=== PATIENT | female | born 1980 | race Caucasian/White ===

== ENCOUNTER 2020-11-07 11:47 | Outpatient (NON) | payer OTHER, SELFPAY ==
[2020-11-07 21:33] LABS: SARS-CoV-2 RNA PCR Negative
== END 2020-11-07 11:48 ==
LOC: ANHCOVIDDT 11:50
PROVIDERS: Visit Provider Family Medicine
DX: R19.7 Diarrhea, unspecified (principal); Z20.828 Contact with and (suspected) exposure to other viral communicable diseases
CPT/HCPCS: 87635; C9803; U0003

== ENCOUNTER 2024-04-02 08:54 | Emergency (ER) | payer OTHER, SELFPAY ==
[2024-04-02] VITALS (8 sets, daily range): BP systolic 106–124; BP diastolic 66–83; PULSE 66–70; RESP 16; TEMP 36.6–36.7; O2SAT 98–100
--- NOTE | ~2024-04-02 | US_ITS ---
EXAMINATION: US pelvic complete DATE: 04/02/2024 10:44 INDICATION: Right lower quadrant abdominal pain. TECHNIQUE: Multiple transabdominal and transvaginal sonographic images of the pelvis were obtained. COMPARISON: None. FINDINGS: TRANSABDOMINAL ULTRASOUND: The uterus measures 8.7 x 6.0 x 7.3 cm. There is no free fluid in the pelvis. TRANSVAGINAL ULTRASOUND: The endometrial complex measures 15 mm in thickness. The right ovary measures 4.7 x 3.2 x 4.2 cm. The left ovary measures 3.2 x 1.0 x 2.4 cm. There is normal vascular flow in the ovaries. IMPRESSION: 1. Normal pelvis. Reviewed, dictated and finalized at location A. IMPRESSION: 1. Normal pelvis.
--- NOTE | ~2024-04-02 | CT_ITS ---
EXAMINATION: CT abdomen pelvis w con DATE: 04/02/2024 10:58 INDICATION: Right lower quadrant abdominal pain. Right flank pain. Vaginal bleeding. TECHNIQUE: Computed tomography (CT) of the abdomen and pelvis was performed with 100 mL Omnipaque 350 intravenous contrast. Automated exposure control and iterative reconstruction technique were employe d. The dose-length product was 221.19 mGy-cm. COMPARISON: Ultrasound pelvis 04/02/2024 FINDINGS: The visualized portions of the lung bases demonstrate a few pulmonary nodules measuring up to 4 mm, likely benign. A calcified right lung nodule is consistent with old granulomatous disease. N o pleural effusion. The heart size is normal. No pericardial effusion. There are cysts in the liver m easuring up to 5 mm. The gallbladder, spleen, pancreas, adrenal glands, and kidneys are normal. There are no dilated loops of bowel. The appendix is normal. There are no pathologically enlarged lymph no eli. There is physiologic fluid in the pelvis. The uterus demonstrates heterogeneous contrast enhance ment. Left ovarian vein is enlarged, consistent with pelvic venous insufficiency. There is mild thora cic spondylosis. IMPRESSION: 1. Heterogeneous contrast enhancement of the uterus, likely fibroids. 2. Pelvic venous insufficiency. Reviewed, dictated and finalized at location A.
[2024-04-02 09:19] LABS: Basophils Percent Auto 0.6 % (0.2-1.2); Eosinophils Absolute Auto 0.1 K/mm3 (0-0.3); Eosinophils Percent Auto 1.7 % (0-4.4); Hematocrit 38.6 % (37.0-47.0); Hemoglobin 12.4 g/dL (12.0-15.0); Immature Granulocyte Absolute 0.02 K/mm3 (0.00-0.031); Immature Granulocyte Percent A 0.3 % (0-0.5); Lymphocytes Absolute Auto 1.77 K/mm3 (0.9-3.2); Lymphocytes Percent Auto 27.6 % (18.3-44.2); Mean Corpuscular HGB Conc 32.1 g/dl (32-36); Mean Corpuscular Hemoglobin 28.8 pg (26-34); Mean Corpuscular Volume 89.8 fl (80-100); Monocytes Absolute Auto 0.6 K/mm3 (0.1-0.6); Monocytes Percent Auto 9.8 % (2.6-8.5); Neutrophils Absolute Auto 3.8 K/mm3 (1.3-6.7); Platelet Count Result 357 k/mm3 (150-375); Red Cell Distribution Width 15.5 % (11.5-14.5); White Blood Count 6.4 K/mm3 (4.5-10.0)
[2024-04-02 09:28] LABS: Prothrombin Time 13.6 Seconds (11.1-14.7)
[2024-04-02 09:29] LABS: Partial Thromboplastin Time 28.8 Seconds (22.3-36.8)
[2024-04-02 09:37] LABS: Alanine Aminotransferase 14 U/L (6-35); Albumin Level 4.1 g/dL (3.5-5.1); Alkaline Phosphatase 40 U/L (38-126); Anion Gap 5 mmol/L (4-12); Aspartate Amino Transferase 24 U/L (14-36); Bilirubin,Total 0.4 mg/dL (0.2-1.3); Blood Urea Nitrogen 9 mg/dL (7-17); Calcium 8.6 mg/dL (8.4-10.2); Carbon Dioxide 22 mmol/L (22-30); Chloride 109 mmol/L (98-107); Estimated Glomerular Filt Rate > 60; Glucose 91 mg/dL (65-110); Potassium 4.2 mmol/L (3.4-5.0); Sodium 136 mmol/L (137-145)
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
[2024-04-02] MEDS: ACETAMINOPHEN 500 MG TABLET 1000 MG PO (10:45)
[2024-04-02 10:58] LABS: Bacteria Urine None Seen /hpf; Non Pathogenic Casts 0-2; RBC Urine >100 /hpf (0-2); Squamous Epithelial Cell Urine None Seen /hpf (Few)
[2024-04-02 11:22] LABS: Appearance Urine Cloudy (Clear); Bilirubin Urine Negative (Negative); Blood Urine 3+ (Negative); Glucose Urine UA Negative (Negative); Ketones Urine Negative (Negative); Leukocyte Esterase Ur 2+ LEU/UL (Negative); Nitrate Urine Negative (Negative); Protein Urine Negative (Negative); Specific Grav Ur 1.006 (1.001-1.035); Urobilinogen Urine 0.2 mg/dL (<2.0)
[2024-04-02 11:25] LABS: Add Urine Microscopic? YES; Color Urine Light Red (Yellow)
[2024-04-02 13:15] LABS: Trichomonas Vag PCR NOT DETECTED (NOT DETECTE)
[2024-04-02 13:38] LABS: Chlamydia trachomatis NOT DETECTED (NOT DETECTE); Neisseria gonorrhoeae PCR NOT DETECTED (NOT DETECTE)
== END 2024-04-02 14:48 | disposition home or self-care (01) ==
PROVIDERS: Emergency Provider Student in an Organized Health Care Education/Training Program; PCP Obstetrics & Gynecology
DX: N93.9 Abnormal uterine and vaginal bleeding, unspecified (principal); N94.89 Other specified conditions associated with female genital organs and menstrual cycle; D25.9 Leiomyoma of uterus, unspecified; R82.998 Other abnormal findings in urine; R10.2 Pelvic and perineal pain; F90.9 Attention-deficit hyperactivity disorder, unspecified type; F41.9 Anxiety disorder, unspecified; I34.1 Nonrheumatic mitral (valve) prolapse; F17.290 Nicotine dependence, other tobacco product, uncomplicated
CPT/HCPCS: 36415; 74177; 76856; 80053; 81001; 81025; 85025; 85610; 85730; 87077; 87086; 87088; 87491; 87591; 87661; 99284; A9270; Q9967

== ENCOUNTER 2024-05-04 01:09 | Day surgery (SDC) | payer OTHER, SELFPAY ==
[2024-05-01 15:42] VITALS: BMI 21.4
--- NOTE | 2024-05-01 15:58 | PC.NURSE ---
Patient hung up before interview was done so no instructions were given to patient.
--- NOTE | 2024-05-04 06:53 | WPDHPUPDATE1 ---
History and Physical Update Update Date/Time: 05/04/24 06:53 History and Physical has been reviewed, including an updated exam of the patient. There are NO changes in the patient's condition. Risks, benefits, and alternatives have been discussed and questions answered. Patient agrees to proceed with hysteroscopy with D&C and endometrial ablation..
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
[2024-05-04] MEDS: ACETAMINOPHEN 500 MG TABLET 1000 MG PO (13:20)
[2024-05-04 13:31] VITALS: BMI 21.5
[2024-05-04 13:32] VITALS: BP 112/69; PULSE 67; RESP 16; TEMP 37.1; O2SAT 94
--- NOTE | 2024-05-04 13:34 | WPDANESEPPF ---
Anes - Initial Pre Proc Eval Procedure: Operation Date: 05/04/24 11:45 Proposed Procedures p Hysteroscopy, Dilation and Curettage, Carmen Endometrial Ablation - Shea Laird MD Date/Time: 05/04/24 13:34 Surgeon: Shea Laird MD Pre Op Diagnosis: abn uterine bleeding Patient Data Age: 43 Gender: F Height: 1.57 m Weight: 53.5 kg Last Vital Signs Temp 98.7 F 05/04/24 13:32 Pulse 67 05/04/24 13:32 Resp 16 05/04/24 13:32 BP 112/69 05/04/24 13:32 Pulse Ox 94 05/04/24 13:32 O2 Del Method Room Air 05/04/24 13:32 Allergies Allergy/AdvReac Type Severity Reaction Status Date / Time No Known Allergies Allergy Verified 05/04/24 13:21 Home Medications Medication Instructions Recorded Confirmed Type clonazepam 1 mg tablet 1 mg PO QHS 02/04/24 05/04/24 History valacyclovir 500 mg tablet 500 mg PO DAILY 02/04/24 05/04/24 History venlafaxine 37.5 mg 37.5 mg PO DAILY 02/04/24 05/04/24 History capsule,extended release 24 hr (Effexor XR) ibuprofen 600 mg tablet 600 mg PO TID PRN pain #20 tabs 04/02/24 05/04/24 Rx cyclobenzaprine 10 mg tablet 10 mg PO BID PRN Spasms 04/13/24 05/04/24 History medroxyprogesterone 10 mg tablet 10 mg PO QHS #30 tabs 04/28/24 05/04/24 Rx (Provera) acetaminophen 500 mg tablet 1,000 mg PO TID #60 tabs 05/04/24 Rx ibuprofen 800 mg tablet 800 mg PO TID #30 tabs 05/04/24 Rx Patient hx anesthesia problems: none Family hx anesthesia problems: none Results Review: All pre-operative results and documents have been reviewed as part of the pre-operative evaluation. [facility] Past Medical History Medical History ADHD Anxiety Herpes History of chlamydia before she had children; treated History of endometrial biopsy 11/29/2023 benign polyps with [place] women - see old records from previous ob /obstetrician gynecologist History of miscarriage Mitral valve prolapse Muscle spasm Pelvic congestion syndrome Surgical History Surgical History H/O neck surgery History of tubal ligation Family History Family History Father Stomach cancer Social History Social History Years smoked: 4 Smoking status: Current every day smoker Tobacco type: e-cigarettes/vaping Alcohol intake: never Substance use: current Substance use type: marijuana Other substance usage details: daily Do You Feel Safe in your Home?: Yes Lack of Transportation: YES Lack of Food: Sometimes True Current Housing: I Have Housing Concerned About Future Housing: No Difficulty Paying Gas/Electric Bills: No Difficulty Paying for Meds: No Currently Unemployed: No Education: High School Diploma/GED Difficulty w/ Childcare or Family Care: No Living arrangements: with family Additional living arrangements comments: Has 5 living children Occupation/Education: occupation Additional occupation/education comments: [employer] Gender identity (if verbalized by the patient): Female Sexual Orientation (if Verbalized by the Patient): Straight or Heterosexual Spiritual care concerns: No Anes - Eval Final PreProcedure Day of Procedure 05/04/24 13:34 Patient weight: normal Heart: regular rate and rhythm Lungs: clear to auscultation Airway: Mallampati scale class II Neurological: alert and oriented Last oral intake: >/= 8 hours ASA classification: II Emergent: no Anesthetic plan: proceed Anesthesia type and monitoring: general GIVS and standard monitoring Results Review: All pre-operative results and documents have been reviewed as part of the pre-operative evaluation. Pt ex smoker, 20 pack years, now vapes daily, almost continuously. Informed Consent: The patient's anesthetic plan and its attendant risks and benefits were
[2024-05-04] MEDS: ceFAZolin SODIUM 1 GM VIAL 2 GM IV PUSH (13:42)
[2024-05-04 14:13] VITALS: BP 115/60; PULSE 63; RESP 16; O2SAT 95
[2024-05-04] MEDS: LACTATED RINGERS 1,000 ML 30 ML IV CONT (14:13)
--- NOTE | 2024-05-04 14:18 | W.PM.PROC2 ---
Procedure Note - Detailed Date of Procedure 05/04/24 Pre-op Diagnosis abn uterine bleeding Post-op Diagnosis Other (endometrial polyp) Procedure Performed Hysteroscopy, polypectomy, D&C, Carmen endometrial ablation Surgeon Shea Laird MD Anesthesia MAC Findings Uterus sounded to 9cm; cervix 4, anteverted. Endometrial polyp arising from right/fundal area of uterus, removed with tissue shaver. Bilateral tubal ostia visualized. Good hemostasis at end of case. FD: 120cc. Description of Procedure Carmen was taken to the operating room where she was placed under sedation without complications. She was then prepped and draped in the usual sterile fashion in the dorsal lithotomy position with her legs in low Dwayne stirrups. A time-out was performed and she received 2g Ancef. A bivalve speculum was placed within the vagina where the cervix was easily identified. The anterior lip of the cervix was grasped with a single-tooth tenaculum. The cervix was then serially dilated to allow for the hysteroscope. The hysteroscope was advanced into the uterine cavity with the above findings noted. Using the Aveta tissue shaver, the endometrial polyp was removed and sent to pathology. A curettage was then performed until a good uterine cry was felt throughout the uterus. The Carmen endometrial ablation device was then placed within the endometrial cavity; set to 4cm. The procedure was performed per resaw carriage operator's instructions in the correct manner without complications. Good hemostasis was noted. All instruments were removed from the vagina. Sponge, lap, instrument, and needle counts were correct at the end of the procedure. Patient was awoken from anesthesia and taken to recovery with plans of same-day discharge home. Estimated Blood Loss 20 IV Fluids 700 Pathology Yes (endometrial curettings, endometrial polyp) Complications No immediate complications Condition Stable Disposition Same day [facility] Billing Surgery - Charge Forward: Surgery Billing
[2024-05-04 14:40] VITALS: BP 121/76; PULSE 60; RESP 16
[2024-05-04 15:05] VITALS: BP 108/69; PULSE 60; RESP 16
[2024-05-04 15:30] VITALS: BP 128/67; PULSE 60; RESP 16
== END 2024-05-04 15:34 | disposition home or self-care (01) ==
PROVIDERS: PCP Family Medicine; Visit Provider Obstetrics & Gynecology
PROC: 0U5B8ZZ Destruction of Endometrium, Via Natural or Artificial Opening Endoscopic (ICD-10-PCS; CPT 58563; principal; 2024-05-04 11:45)
DX: N93.9 Abnormal uterine and vaginal bleeding, unspecified (principal); N84.0 Polyp of corpus uteri; F90.9 Attention-deficit hyperactivity disorder, unspecified type; F41.9 Anxiety disorder, unspecified; B00.9 Herpesviral infection, unspecified; F17.290 Nicotine dependence, other tobacco product, uncomplicated; F12.90 Cannabis use, unspecified, uncomplicated
CPT/HCPCS: 58563; 88305; A9270; J0690; J2250; J2704; J3010; J7120